=== PATIENT | female | born 1980 | race Caucasian/White ===

== ENCOUNTER → 2022-08-08 | Outpatient (CLI) | payer MEDICAID | LOC: RAD 15:11 | PROVIDERS: ATTEND Nurse Practitioner Family | DX: M54.6 Pain in thoracic spine (principal); M54.50 Low back pain, unspecified ==

== ENCOUNTER → 2022-10-14 | Outpatient (CLI) | payer MEDICAID | END | disposition home or self-care (01) | LOC: MAMMO 10:57 | PROVIDERS: ATTEND Nurse Practitioner Family | DX: N64.52 Nipple discharge (principal); R92.1 Mammographic calcification found on diagnostic imaging of breast ==

== ENCOUNTER 2023-01-12 15:51 | Emergency (ER) | payer MEDICAID ==
[~2023-01-12] VITALS: Ht 160 cm; Wt 68.5 kg
[2023-01-12] MEDS ORDERED: PREDNISONE10 M1 PO (20:21)
== END 2023-01-12 20:26 | disposition home or self-care (01) ==
LOC: ED 15:51
DX: B34.9 Viral infection, unspecified (principal); R21 Rash and other nonspecific skin eruption; Z88.0 Allergy status to penicillin; Z91.040 Latex allergy status; Z87.891 Personal history of nicotine dependence; Z20.822 Contact with and (suspected) exposure to COVID-19

== ENCOUNTER 2023-01-14 15:24 | Emergency (ER) | payer MEDICAID ==
[~2023-01-14] VITALS: Ht 160 cm; Wt 67.1 kg
[~2023-01-14 15:24] MED LIST: PREDNISONE10 M1 PO
[2023-01-14] MEDS ORDERED: NAPROSYN500 MG PO (15:54)
== END 2023-01-14 16:11 | disposition home or self-care (01) ==
LOC: ED 15:24
DX: M54.41 Lumbago with sciatica, right side (principal); M79.604 Pain in right leg; Z88.0 Allergy status to penicillin; Z91.040 Latex allergy status; Z88.8 Allergy status to other drugs, medicaments and biological substances

== ENCOUNTER 2023-07-16 17:20 | Emergency (ER) | payer MEDICAID ==
[~2023-07-16] VITALS: Wt 74.4 kg
[~2023-07-16 17:20] MED LIST changes: +NAPROSYN500 MG PO
[2023-07-16] MEDS ORDERED: diphenhydrAMINE hydrochloride 25 MG CAP PO ONE (17:40)
[2023-07-16] MEDS ORDERED: DEXAMETHASONE 4 MG TAB PO ONE (17:40)
== END 2023-07-16 17:56 | disposition home or self-care (01) ==
LOC: ED 17:20
DX: T63.441A Toxic effect of venom of bees, accidental (unintentional), initial encounter (principal); Z88.0 Allergy status to penicillin; Z91.041 Radiographic dye allergy status; Z88.8 Allergy status to other drugs, medicaments and biological substances; Z90.12 Acquired absence of left breast and nipple; Z90.711 Acquired absence of uterus with remaining cervical stump; Z98.890 Other specified postprocedural states; Y92.89 Other specified places as the place of occurrence of the external cause

== ENCOUNTER 2023-10-05 14:59 | Emergency (ER) | payer MEDICAID ==
[~2023-10-05] VITALS: Ht 160 cm; Wt 74.8 kg
[2023-10-05 16:56] LABS: BASO % 0.4 % (0.0-1.0); EOS # 0.4 10*3/uL (0.0-0.4); HEMATOCRIT 45.3 % (37.0-47.0); LYMPH # 1.6 10*3/uL (1.3-4.4); LYMPH % 22.1 % (27.0-41.0); MEAN CELL VOLUME 94.2 fl (81.0-99.0); MEAN CORPUSCULAR HGB 30.4 pg (27.0-31.0); MEAN CORPUSCULAR HGB CONC 32.2 g/dl (33.0-37.0); MEAN PLATELET VOLUME 8.9 fl (9.6-12.3); MONO # 0.6 10*3/uL (0.1-1.0); MONO % 8.1 % (3.0-9.0); NEUT # 4.5 10*3/uL (2.3-7.9); NEUT % 63.1 % (47.0-73.0); PLATELET COUNT AUTOMATED 311 10*3/uL (130-400); RED BLOOD COUNT 4.81 10*6/uL (4.10-5.10); RED CELL DISTRI WIDTH 14.1 % (0-14.5); WHITE BLOOD COUNT 7.1 10*3/uL (4.8-10.8)
[2023-10-05 17:13] LABS: BUN 6 mg/dl (9-23); CHLORIDE 108 mmol/L (98-107); POTASSIUM 3.7 mmol/L (3.4-5.1)
== END 2023-10-05 19:12 | disposition home or self-care (01) ==
LOC: ED 14:59
PROVIDERS: Nurse Practitioner Family
DX: H53.8 Other visual disturbances (principal); H53.2 Diplopia; Z91.040 Latex allergy status; Z88.0 Allergy status to penicillin; Z88.8 Allergy status to other drugs, medicaments and biological substances; Z90.12 Acquired absence of left breast and nipple; Z90.711 Acquired absence of uterus with remaining cervical stump; Z98.890 Other specified postprocedural states

== ENCOUNTER 2024-08-28 21:27 | Emergency (ER) | payer MEDICAID ==
[~2024-08-28] VITALS: Ht 167.6 cm; Wt 79.8 kg
[2024-08-28] MEDS ORDERED: METHOCARBAMOL 750 MG TAB PO ONE (22:25)
[2024-08-28] MEDS ORDERED: Ketorolac Tromethamine 60 MG/2 ML VIAL IM ONE (22:25)
[2024-08-28] MEDS ORDERED: METHOCARBAMOL750 M1 PO (22:29)
[2024-08-28] MEDS ORDERED: NAPROXEN250 MG PO (22:29)
== END 2024-08-28 22:33 | disposition home or self-care (01) ==
LOC: ED 21:27
DX: S16.1XXA Strain of muscle, fascia and tendon at neck level, initial encounter (principal); Z88.0 Allergy status to penicillin; Z91.040 Latex allergy status; Z90.711 Acquired absence of uterus with remaining cervical stump; X58.XXXA Exposure to other specified factors, initial encounter; Y93.89 Activity, other specified; Y92.89 Other specified places as the place of occurrence of the external cause; Y99.8 Other external cause status